=== PATIENT | female | born 1940 | race Caucasian/White ===

== ENCOUNTER 2020-12-14 03:36 | Emergency (ER) | payer BC ==
[~2020-12-14] VITALS: Ht 167.6 cm; Wt 82.5 kg
--- NOTE | 2020-12-14 03:52 | PHYS DOC ---
Past History Past Medical History: Arthritis, Dementia, High Cholesterol, Hypertension, Hypothyroid Past Surgical History Thyroidectomy General Adult HPI: HPI: ".. Oh .. I ...don't know... I guess I vomited...." Patient is a 80 year old female who presents with above hx and complaints of nausea, vomiting, chills after eating dinner. No one else became ill. Pt. hx hypothyroid, dementia, arthritis. Pt. visiting from [place]. All other family members has had head colds this weeks. Pt. had COVID vaccination in July. Patient somewhat a poor historian because of her dementia. Patient accompanied with her family members visiting and nephew here in [place]. Patient reportedly had eaten dinner at the family members and vomited after dinner. Patient reportedly seemed to be having some chills. All the other family members and they found a group had recent head cold. Pt. follows with Dr. Mukherjee Review of Systems: Review of Systems: Constitutional: Complains of chills Eyes: Denies change in visual acuity HENT: Denies nasal congestion or sore throat Respiratory: Denies cough or shortness of breath Cardiovascular: Denies chest pain or edema GI: Hx. nausea, vomiting, . Denies bloody stools or diarrhea : Denies dysuria Musculoskeletal: Complaints muscle and joint pain Integument: Denies rash Neurologic: Denies headache, focal weakness or sensory changes Endocrine: Denies polyuria or polydipsia Lymphatic: Denies swollen glands Psychiatric: Hx. dementia and anxiety Family History: Family History: Noncontributory to presentation other than other family members have had colds Current Medications: Current Meds: See nursing for home meds Allergies: Allergies: No known drug allergies Physical Exam: PE: Constitutional: no acute distress, non-toxic appearance. [] HENT: Normocephalic, atraumatic, bilateral external ears normal, oropharynx moist, no oral exudates, nose swollen turbinates and clear rhinorrhea Eyes: PERRLA, EOMI, conjunctiva normal, no discharge. [] Neck: Normal range of motion, no tenderness, supple, no stridor. [] Old thyroid ectomy scar Cardiovascular:Heart rate regular rhythm, no murmur [] Lungs & Thorax: Bilateral breath sounds equal apex with few scattered wheezes auscultation [. Few bilateral basilar crackles that clear with cough.] Abdomen: Bowel sounds normal, soft, mild epigastric tenderness with deep palpation, no masses, no pulsatile masses. Distended abdomen. No true areas of rebound. Skin: Warm, dry, no erythema, no rash. Poor turgor Back: No tenderness, no CVA tenderness. [] Extremities: No tenderness, no cyanosis, no clubbing, ROM intact, no edema. Arthritic changes. No cording appreciated Neurologic: Alert and oriented X 3, normal motor function, normal sensory function, no focal deficits noted. [] Psychologic: Affect anxious, judgement impaired-chronic history of dementia, mood normal. [] EKG: EKG: My interpretation EKG shows a sinus rhythm at 75 bpm. There is some T wave changes but no findings acute STEMI of contralateral changes. Time of EKG is 413 hours [] Radiology/Procedures: Radiology/Procedures: [][address] [address] IMAGING REPORT Signed PATIENT: ELENA PEDRO ACCOUNT: [id number] : 1940 LOCATION: ER AGE: 80 SEX: F EXAM STATUS: DEP ER ORD. PHYSICIAN: NARAYAN RIZVI MD REASON: nv PROCEDURE: ACUTE ABDOMEN SERIES EXAM: 2 VIEW ABDOMEN WITH ONE VIEW CHEST. HISTORY: Nausea and vomiting. COMPARISON: None. FINDINGS: A frontal view of the chest and supine/upright views of the abdomen are obtained. There is a mild airspace opacity in the left base. There is no pneumothorax or pleural effusion. The heart is not enlarged. There are atherosclerotic calcifications of the aorta. 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 There is no pneumoperitoneum. There are no distended small bowel loops or significant air-fluid levels. There is gas distally. Stool throughout the colon is consistent with constipation. Cholelithiasis is noted. IMPRESSION: 1. Mild left basilar airspace opacity. Correlate for evidence of infection to differentiate atelectasis from mild infiltrate. 2. No evidence of obstruction. Correlate for constipation. 3. Cholelithiasis. Electronically signed by: Elizabeth Reyes MD (12/14/2020 6:29 AM) [facility] DICTATED AND SIGNED BY: MARK REYES MD DATE: 12/14/20 0628 CC: NARAYAN RIZVI MD; NON,STAFF ~MTH0 0 Heart Score: C/O Chest Pain: No HEART Score for Chest Pain: HEART Score for Chest Pain Response (Comments) Value History Slighlty/Non-Suspicious 0 ECG Nonspecific Repolarizatio 1 Age > 65 2 Risk Factors 1 or 2 Risk Factors 1 Troponin < Normal Limit 0 Total 4 Risk Factors: Risk Factors: DM, Current or recent (<one month) smoker, HTN, HLP, family history of CAD, obesity. Risk Scores: Score 0 - 3: 2.5% MACE over next 6 weeks - Discharge Home Score 4 - 6: 20.3% MACE over next 6 weeks - Admit for Clinical Observation Score 7 - 10: 72.7% MACE over next 6 weeks - Early Invasive Strategies Course & Med Decision Making: Course & Med Decision Making Pertinent Labs and Imaging studies reviewed. (See chart for details) Patient remain on a clear fluid diet for the next 24 hours. No solids or milk products. Consider dose of milk of mag for constipation. Self isolate. Follow-up Covid testing. Return if any concerns. Impression; 1. Viral syndrome 2. Constipation 3. History of dementia 4. Elevated glucose 156 [] Dragon Disclaimer: Dragon Disclaimer: This electronic medical record was generated, in whole or in part, using a voice recognition dictation system. Departure Departure: Referrals: NON,STAFF (PCP) Scripts Ondansetron Hcl (ZOFRAN) 4 Mg Tablet 8 MG PO QIDPRN PRN for NAUSEA/VOMITING, #30 TAB Prov: NARAYAN RIZVI MD 12/14/20 Dragon Disclaimer This chart was dictated in whole or in part using Voice Recognition software in a busy, high-work load, and often noisy Emergency Department environment. It may contain unintended and wholly unrecognized errors or omissions. NARAYAN RIZVI MD Dec 14, 2020 03:52
[2020-12-14] MEDS ORDERED: FAMOTIDINE 20 MG/2 ML VIAL IVP ONE (04:00)
[2020-12-14] MEDS ORDERED: ONDANSETRON PF 4 MG/2 ML VIAL. IVP ONE (04:00)
[2020-12-14] MEDS ORDERED: IV RINGERS SOLUTION,LACTATED 1,000 ML IV SCH (04:00)
[2020-12-14 04:06] LABS: BASO # 0.3 x10^3/uL (0.0-0.2); BASO % 3 % (0-3); EOS # 0.1 x10^3/uL (0.0-0.7); EOS % 1 % (0-3); HEMATOCRIT 41.7 % (36.0-47.0); HEMOGLOBIN 14.3 g/dL (12.0-15.5); LYMPH # 1.8 x10^3/uL (1.0-4.8); LYMPH % 18 % (24-48); MEAN CORPUSCULAR HEMOGLOBIN 32 pg (25-35); MEAN CORPUSCULAR HGB CONC 34 g/dL (31-37); MEAN CORPUSCULAR VOLUME 94 fL (79-100); MONO # 0.4 x10^3/uL (0.0-1.1); MONO % 4 % (0-9); NEUT # 7.5 x10^3uL (1.8-7.7); NEUT % 75 % (31-73); PLATELET COUNT 290 x10^3/uL (140-400); RED BLOOD COUNT 4.46 x10^6/uL (3.50-5.40); RED CELL DISTRIBUTION WIDTH 14.2 % (11.5-14.5); WHITE BLOOD COUNT 10.1 x10^3/uL (4.0-11.0)
[2020-12-14 04:17] LABS: CALCIUM 9.4 mg/dL (8.5-10.1); CREATININE 0.9 mg/dL (0.6-1.0); GFR 60.2; POTASSIUM 3.8 mmol/L (3.5-5.1)
[2020-12-14 04:24] LABS: ALBUMIN 3.9 g/dL (3.4-5.0); DIRECT BILIRUBIN 0.1 mg/dL (0.0-0.2); PLT ESTIMATE ADEQUATE (ADEQUATE); TOTAL BILIRUBIN 0.4 mg/dL (0.2-1.0); TOTAL PROTEIN 7.4 g/dL (6.4-8.2)
--- NOTE | 2020-12-14 05:02 | EKG ---
[address] [address] Test Date: 2020-12-14 Test Time: 04:13:00 Pat Name: ELENA PEDRO Department: Room: Gender: F Creative Designer: LUZ : 1940 Requested By: NARAYAN RIZVI Order Number: [id number] Reading MD: Measurements Intervals [place] Rate: 75 P: 45 MS: 158 QRS: 21 QRSD: 86 T: 66 QT: 426 QTc: 479 Interpretive Statements SINUS RHYTHM R-S TRANSITION ZONE IN V LEADS DISPLACED TO THE RIGHT T ABNORMALITY IN HIGH LATERAL LEADS PROLONGED QT ABNORMAL ECG RI6.02 No previous ECG available for comparison
[2020-12-14 05:20] LABS: BACTERIA,URINE 0 /HPF (0-FEW); BILIRUBIN,URINE NEG (NEG); CLARITY,URINE HAZY; COLOR,URINE YELLOW; GLUCOSE,URINE NEG (NEG); NITRITE,URINE NEG (NEG); RBC,URINE 0 /HPF (0-2); SQUAMOUS EPITHELIAL CELL,UR OCC /LPF; UROBILINOGEN,URINE 0.2 mg/dL (0.2 mg/dL)
[2020-12-14] MEDS ORDERED: ONDA4TAB7 PO (05:49)
[2020-12-14 06:15] VITALS: BP 168/85
--- NOTE | 2020-12-14 06:32 | RAD ---
EXAM: 2 VIEW ABDOMEN WITH ONE VIEW CHEST. HISTORY: Nausea and vomiting. COMPARISON: None. FINDINGS: A frontal view of the chest and supine/upright views of the abdomen are obtained. There is a mild airspace opacity in the left base. There is no pneumothorax or pleural effusion. The heart is not enlarged. There are atherosclerotic calcifications of the aorta. Left glenohumeral osteo arthritis is moderate to severe. There is no pneumoperitoneum. There are no distended small bowel loops or significant air-fluid level s. There is gas distally. Stool throughout the colon is consistent with constipation. Cholelithiasis is noted. IMPRESSION: 1. Mild left basilar airspace opacity. Correlate for evidence of infection to differentiate atelectas is from mild infiltrate. 2. No evidence of obstruction. Correlate for constipation. 3. Cholelithiasis. Electronically signed by: Elizabeth Reyes MD (12/14/2020 6:29 AM) [facility]
== END 2020-12-14 06:20 | disposition home or self-care (01) ==
LOC: ER 03:36
DX: B34.9 Viral infection, unspecified (principal); K59.00 Constipation, unspecified; R73.9 Hyperglycemia, unspecified; E78.5 Hyperlipidemia, unspecified; Z20.822 Contact with and (suspected) exposure to COVID-19
CPT/HCPCS: 36415; 74022; 80048; 80076; 81001; 82150; 82550; 83690; 84443; 84484; 85025; 85610; 85730; 87086; 93005; 96361; 96374; 96375; 99285; C9803; J2405; J3490; J7120; U0003